=== PATIENT | male | born 1950 | race Hispanic/Latino ===

== ENCOUNTER → 2017-05-27 | Outpatient (CLI) | payer MEDICARE ==
--- NOTE | 2017-05-27 08:45 | Diagnostic Imaging Report ---
PROCEDURE:ABDOMINAL ULTRASOUND COMPARISON:None. INDICATIONS:Abdominal Pain FINDINGS: Liver: 15.2 cm in length in the right midclavicular line. Normal hepatic parenchymal echogenicity. No focal mass. Main portal vein: 0.6 cm in caliber. Hepatopedal flow. Gallbladder: No shadowing calculus, wall thickening, or pericholecystic fluid. Echogenic foci along the gallbladder wall with associated ringdown artifact. Common Bile Duct: 0.2 cm in caliber. No echogenic filling defect. Sonographic Mchugh's sign: Reported as negative. Right kidney: 10.8 cm in length. No solid or cystic mass, echogenic calculi, or hydronephrosis. Normal parenchymal echogenicity. Left kidney: 10.7 cm in length. No solid or cystic mass, echogenic calculi, or hydronephrosis. Normal parenchymal echogenicity. Spleen: 9.7 cm in length. Uniform parenchymal echotexture. Pancreas: The visualized portions of the pancreas are normal. Inferior vena cava: Patent. Aorta: Non-aneurysmal. Ascites: None. CONCLUSION: Gallbladder wall adenomyomatosis. No cholelithiasis or sonographic evidence of acute cholecystitis. Otherwise unremarkable abdominal ultrasound. Dictated by: Tremayne Becker M.D. on 05/27/2017 at 8:53 Electronically approved by: Tremayne Becker M.D. on 05/27/2017 at 8:53
--- NOTE | 2017-05-27 09:31 | Diagnostic Imaging Report ---
PROCEDURE: X-RAY UPPER GI SERIES WITH AIR CONTRAST FLUOROSCOPY TIME: 1.4 MINUTES RADIATION DOSE: 62.95 mGy COMPARISON: None. INDICATIONS: Not provided. FINDINGS: ESOPHAGUS: Motility: Sporadic tertiary, nonperistaltic contractions. Mucosa: Unremarkable. Distensibility: Normal. GASTROESOPHAGEAL JUNCTION: No evidence of hiatal hernia. GASTROESOPHAGEAL REFLUX: Moderate reflux into the middle third of the esophagus. STOMACH: Normally distensible and demonstrates normal contours and mucosal pattern. DUODENUM: Bulb and sweep are normal. Duodenal-jejunal junction is in the normal expected position. IMPRESSION: Moderate gastroesophageal reflux. Dictated by: Tremayne Becker M.D. on 05/27/2017 at 9:39 Electronically approved by: Tremayne Becker M.D. on 05/27/2017 at 9:39
== END ==
LOC: US 07:46
PROVIDERS: ATTEND Family Medicine
DX: R10.9 Unspecified abdominal pain (principal); K21.9 Gastro-esophageal reflux disease without esophagitis
CPT/HCPCS: 74246; 76700

== ENCOUNTER → 2017-06-04 | Outpatient (CLI) | payer MEDICARE ==
[~2017-06-04] MED LIST: SINCALIDE 3 MCG/VIAL INJ ONE
--- NOTE | 2017-06-04 16:43 | Diagnostic Imaging Report ---
Hepatobiliary Scan with Gallbladder Ejection Fraction Clinical information: 67 M with chronic abdominal pain Report: Following intravenous administration of 6 millicuries of Tc-99m mebrofenin, dynamic images of the abdomen in the anterior projection were obtained through 45 minutes. Sincalide (CCK analog) 1.8 micrograms was administered intravenously over 30 minutes with additional imaging for determination of gallbladder ejection fraction. Perfusion to the liver is normal. Extraction of tracer from the blood pool by the liver parenchyma is normal. Tracer is seen promptly within the biliary tract. The gallbladder begins to fill by 22 minutes post-injection of tracer and fills adequately. Tracer is seen in the small bowel by 9 minutes. The gallbladder ejection fraction with administration of sincalide is 93% (normal greater than 40%). Impression: 1. Filling of the gallbladder excludes the diagnosis of acute cystic duct obstruction/acute cholecystitis. 2. Normal gallbladder ejection fraction of 93% does not support the clinical diagnosis of chronic cholecystitis/gallbladder dyskinesia. Signed by: Dr. Erika Manzanares M.D. on 06/04/2017 4:39 PM
== END ==
LOC: NM 11:58
PROVIDERS: ATTEND Family Medicine
DX: R10.9 Unspecified abdominal pain (principal)
CPT/HCPCS: 78227; A9537; J2805

== ENCOUNTER → 2017-09-30 | Outpatient (CLI) | payer MEDICARE ==
--- NOTE | 2017-09-30 13:41 | Diagnostic Imaging Report ---
PROCEDURE:KNEE THREE VIEWS BILATERAL COMPARISON:None. INDICATIONS:BILATERAL KNEE PAIN FINDINGS: Normal mineralization. No acute displaced fracture or dislocation. Mild tricompartmental degenerative joint disease, right greater than left, with presence of small marginal osteophytes. No lytic lesions. 5-6 mm focal sclerotic lesions in the distal left femur have a nonaggressive appearance and likely represent bone islands. No right suprapatellar effusion. Trace left suprapatellar effusion. CONCLUSION: No acute abnormalities. Mild tricompartmental degenerative joint disease, right, is greater than left Manuel Carbone M.D. Dictated by: Manuel Carbone M.D. on 09/30/2017 at 13:43 Electronically approved by: Manuel Carbone M.D. on 09/30/2017 at 13:43
== END ==
LOC: RAD 11:27
PROVIDERS: ATTEND Family Medicine
DX: M25.562 Pain in left knee (principal); M25.561 Pain in right knee

== ENCOUNTER → 2017-12-19 | Outpatient (CLI) | payer MEDICARE ==
--- NOTE | 2017-12-19 18:13 | Diagnostic Imaging Report ---
PROCEDURE: CT ABDOMEN AND PELVIS WITHOUT CONTRAST TECHNIQUE: The abdomen and pelvis were scanned utilizing a multidetector helical scanner from the diaphragm to the lesser trochanter after the oral administration of water. No IV contrast was administered because of stone protocol. Coronal and sagittal multiplanar reformations were obtained. DLP: 692.6 mGy-cm COMPARISON: None. INDICATIONS: RENAL COLIC FINDINGS: ABSENCE OF INTRAVENOUS CONTRAST DECREASES SENSITIVITY FOR DETECTION OF FOCAL LESIONS AND VASCULAR PATHOLOGY. LOWER THORAX: 0.6 cm perifissural nodule along the right minor fissure. Right middle lobe calcified granuloma. HEPATOBILIARY: Hepatic steatosis. No focal hepatic lesions. No biliary ductal dilatation. Focal 0.6 cm gallbladder wall calcification versus calcified granuloma adjacent to the gallbladder. SPLEEN: No splenomegaly. PANCREAS: No focal masses or ductal dilatation. ADRENALS: No adrenal nodules. KIDNEYS/URETERS: No hydronephrosis, stones, or solid mass lesions. Mild right periureteral and peripelvic stranding without ureteral stone. Slight right perinephric stranding. PELVIC ORGANS/BLADDER: Unremarkable. PERITONEUM / RETROPERITONEUM: No free air or fluid. LYMPH NODES: No lymphadenopathy. VESSELS: Moderate atherosclerotic calcifications. Common femoral artery ectasia measuring 1.9 cm on the right and 1.7 cm on the left. GI TRACT: No distention or wall thickening. Descending and sigmoid colonic diverticulosis without evidence of diverticulitis. BONES AND SOFT TISSUES: L2 inferior endplate Schmorl's node. Slight retrolisthesis of L2 on L3. Fat containing inguinal hernias, right greater than left. Degenerative changes of the spine. IMPRESSION: 1. Right perinephric and periureteral stranding may reflect pyelonephritis or passage of a stone which is no longer present. 2. Focal 0.6 cm gallbladder wall calcification versus calcified granuloma adjacent to the gallbladder. 3. Descending and sigmoid colonic diverticulosis without evidence of diverticulitis. Dictated by: Ronald Alvarez M.D. on 12/19/2017 at 18:18 Electronically approved by: Ronald Alvarez M.D. on 12/19/2017 at 18:18
== END ==
LOC: CT 16:42
PROVIDERS: ATTEND Family Medicine
DX: N23 Unspecified renal colic (principal)
CPT/HCPCS: 74176

== ENCOUNTER → 2018-02-20 | Outpatient (CLI) | payer MEDICARE ==
--- NOTE | 2018-02-23 07:44 | Diagnostic Imaging Report ---
Exam: Lumbar spine MRI without IV contrast History: Pain, radiculopathy symptoms. Pain in lower back travels down right leg. Previous back surgery \[id number]. Comparison studies: None Technique: Sagittal and axial T2 , sagittal T1 and IR, axial spin density oblique and coronal T2. Intravenous contrast: None Findings: Number of lumbar vertebral bodies: 5. Alignment: Mild focal kyphotic curvature at L2 at the location of a chronic L2 fracture deformity. Soft tissues: No T2 hyperintense inflammatory changes. Paraspinal muscles: No signal abnormalities. Well-preserved. No atrophic changes Lower thoracic cord: Normal in signal and morphology. The tip of the conus is at the superior L1 level. Cauda equina: No masses. No arachnoiditis. Vertebrae: No acute compression fracture. No evidence of infection or neoplasm. Chronic L2 fracture with involvement of the superior and inferior endplates on the left and anterior wedge compression deformity which results in approximately 60% height loss. Chronic superior endplate depression deformities with mild vertebral body height loss at T12, L1, L3 and at L4. Degenerative changes: Loss of T2/STIR disc signal from T11 to S1. Multilevel anterior marginal osteophytosis. T11-T12 and T12-L1: Mildly degenerated disc. Patent canal and foramina. L1-L2: Moderately degenerated disc. Disc which is partially calcified. There is partial fusion of the vertebral bodies anteriorly in the left. Patent canal and foramina. L2-L3: Mildly degenerated disc. Moderate degenerative endplate changes with mixed sclerotic and fatty replaced changes with mild edema along the inferior L3 endplate on the left. Minimal retrolisthesis of L2 on L3 with associated uncovered disc/disc osteophyte complex asymmetric to the left and mild facet arthrosis with mild canal stenosis and mild bilateral foraminal stenosis. L3-L4: Mildly degenerated disc. Mild fatty replaced marrow endplate changes; no marrow edema. Asymmetric right disc bulge, thickened ligamentum flavum and mild facet arthrosis with mild canal stenosis and mild bilateral foraminal stenosis. L4-L5: Mildly degenerated disc. Mild degenerative endplate changes with moderate reactive edema along the left inferior L4 endplate. Asymmetric left disc bulge with 10 mm TV x 3 mm AP left central disc protrusion, thickened ligamenta flava and mild facet arthrosis with minimal canal stenosis, mild narrowing of the left subarticular recess and mild left foraminal stenosis. Patent right foramen. L5-S1: Mildly degenerated disc. Fatty replaced marrow endplate changes, greatest on the right. Asymmetric right disc osteophyte complex and facet arthrosis with moderate bilateral foraminal stenosis. No significant canal stenosis. Prior laminotomy changes. Partially imaged sacroiliac joints: Degenerative changes bilaterally osteophyte formation along the joint centrally. Additional findings: A 6 mm T2 hyperintense lesion in the interpolar right kidney is most likely a cyst. IMPRESSION: 1. Chronic L2 vertebral body fracture with wedge compression deformity (\R\60% height loss) as well as chronic superior endplate depression deformities at T12, L1, L3 and at L4 with minimal height loss. 2. Degenerative changes with multilevel disc degeneration, small disc protrusion L4-L5, mild degenerative canal stenosis from L2 to L4 and multilevel foraminal stenosis from L2 to L5 which is worse/moderate bilaterally at L5-S1. 3. Prior laminotomy changes at L5-S1. Signed by: Dr. Tremayne Arredondo M.D. on 02/23/2018 7:41 AM
== END ==
LOC: MRI 12:30
PROVIDERS: ATTEND Family Medicine
DX: M54.16 Radiculopathy, lumbar region (principal); M54.5 Low back pain
CPT/HCPCS: 72148

== ENCOUNTER 2018-03-16 09:37 | Outpatient (RCR) | payer MEDICARE | END 2018-03-18 | LOC: PT 09:37 | PROVIDERS: ATTEND Specialist | DX: M54.41 Lumbago with sciatica, right side (principal); S33.5XXA Sprain of ligaments of lumbar spine, initial encounter; M54.5 Low back pain; M62.81 Muscle weakness (generalized) | CPT/HCPCS: 97162; G8978; G8979 ==

== ENCOUNTER 2018-04-08 09:00 | Outpatient (RCR) | payer MEDICARE | END 2018-04-17 | LOC: PT 09:00 | PROVIDERS: ATTEND Specialist | DX: S33.5XXA Sprain of ligaments of lumbar spine, initial encounter (principal); M54.5 Low back pain; M54.41 Lumbago with sciatica, right side; M62.81 Muscle weakness (generalized) ==

== ENCOUNTER → 2019-01-11 | Outpatient (CLI) | payer MEDICARE ==
--- NOTE | 2019-01-11 13:08 | Diagnostic Imaging Report ---
Exam: Bilateral hip series Clinical History: Bilateral hip pain Findings: There is no evidence of acute fracture or malalignment. The articular joints are well-preserved. The soft tissue is unremarkable. Impression: No radiographic evidence of acute osseous injury. Signed by: Dr. Ayaz Richardson MD on 01/11/2019 1:05 PM
== END ==
LOC: RAD 11:44
PROVIDERS: ATTEND Anesthesiology Pain Medicine
DX: M25.552 Pain in left hip (principal); M25.551 Pain in right hip
CPT/HCPCS: 73521

== ENCOUNTER → 2019-03-11 | Outpatient (CLI) | payer MEDICARE ==
--- NOTE | 2019-03-11 10:23 | Diagnostic Imaging Report ---
TECHNIQUE: Magnetic resonance imaging of the BILATERAL HIPS were performed with separate small [id number] imaging WITHOUT injected contrast. HISTORY: Pain, bilateral hips COMPARISON: Bilateral hip radiographs January 11, 2019. Lumbar spine MRI from February 20, 2018. FINDINGS: Bone: Incompletely characterized fat and fluid sensitive hypointense foci, 1.5 cm within the left side of L4 and incompletely visualized 1.7 cm within the left side of L3, which were not visible on the comparison lumbar spine MRI. No osteonecrosis or acute fracture. Femoroacetabular Joints: Acetabular labrum: Attenuation and contour irregularity of the superior and anterosuperior labrum, right greater than left. Articular Cartilage: Low to intermediate grade erosion of the weightbearing cartilage. Muscle and tendons: The visualized tendons appear intact. Soft tissues: Otherwise, unremarkable. IMPRESSION: 1. Mild bilateral degenerative changes of the hips, including degenerative tearing of the brenda. 2. Interval development of an incompletely characterized hypointense foci within the L3 and L4 vertebral bodies, recommend a follow-up MRI of the lumbar spine with and without contrast for further characterization. Signed by: Dr. Jose Boyce D.O., M.M.M. on 03/11/2019 10:20 AM
== END ==
LOC: MRI 07:33
PROVIDERS: ATTEND Anesthesiology Pain Medicine
DX: M25.552 Pain in left hip (principal); M25.551 Pain in right hip

== ENCOUNTER → 2019-04-07 | Outpatient (CLI) | payer MEDICARE ==
[~2019-04-07] MED LIST changes: +GADOBENATE DIMEGLUMINE 1 ML IV ONE; -SINCALIDE 3 MCG/VIAL INJ ONE
[2019-04-07 09:36] LABS: BLOOD UREA NITROGEN 21 mg/dL (7-26); BUN/CREATININE RATIO 23 (6-25); CREATININE, SERUM 0.93 mg/dL (0.72-1.25); EST GLOMERULAR FILTRATION RATE > 60 ML/MIN (60-)
--- NOTE | 2019-04-07 13:51 | Diagnostic Imaging Report ---
History: Low back pain, radiating to bilateral hips. Comparison studies: MRI of the lumbar spine 02/20/2018 Technique: Sagittal, coronal and axial T2 , sagittal T1 and IR, axial spin density oblique. Postcontrast axial and sagittal T1. Intravenous contrast: None Findings: Number of lumbar vertebral bodies:5 Alignment: Straightening of the normal lordosis. Minimal grade 1 retrolisthesis of L2 over L3, stable.No scoliosis. Soft tissues: No T2 hyperintense inflammatory changes. Paraspinal muscles: No signal abnormalities. No atrophy. Lower thoracic cord:Normal in signal and morphology. The tip of the conus is at T12-L1. Cauda equina: No masses. No arachnoiditis. Loss of height Vertebrae: Focal low signal intensity at T12-L4 vertebral bodies, secondary to vertebroplasty changes. No acute compression fractures, infection or neoplasm. Chronic wedge compression deformities from T12 through L4 vertebral bodies, most significant at L2 with 40-60% loss of anterior vertebral body height. No retropulsion. Degenerative changes: L1-L2: Disc degeneration with loss of T2 signal. Patent canal and foramina. L2-L3: Disc degeneration with loss of T2 signal and decreased intervertebral space. Diffuse disc bulge, mild facet hypertrophy and ligamentum flavum thickening results in mild canal stenosis and mild bilateral foraminal narrowing more prominent on the left side. L3-L4: Disc degeneration with loss of T2 signal. Asymmetric right disc bulge, mild facet hypertrophy and ligamentum flavum thickening results in mild canal stenosis, narrowing of the right subarticular recesses, and mild bilateral foraminal narrowing more prominent right. Trace of fluid at the right facet joint. L4-L5: Disc degeneration with loss of T2 signal. Schmorl node at L4 inferior endplate with surrounding edema. Diffuse disc bulge with superimposed small left central disc protrusion (10 mm TV x 3 mm AP ) and mild facet hypertrophy results in mild canal stenosis, narrowing the left subarticular recess and mild left foraminal narrowing. Trace of fluid at the bilateral facet joints. L5-S1: Disc degeneration with loss of T2 signal. Asymmetric right disc bulge, mild facet hypertrophy results in no significant canal stenosis and moderate bilateral foraminal narrowing more prominent on the right. Irregularity of the right lamina, could be related to previous intervention. Additional findings: Degenerative changes of the right SI joint, nearby anteriorly projecting osteophytes. 6 mm cyst at the right kidney interpolar region. IMPRESSION: Moderate bilateral degenerative foraminal narrowing at L5-S1, stable. Degenerative narrowing of the subarticular recesses at L3-4 on the right and L4-5 on the left, stable. Other degenerative changes without significant (moderate or severe) canal stenosis or foraminal narrowing. Mild synovitis changes at the L3-L4 right and L4-L5 bilaterally L5-S1 laminectomy changes, stable. Chronic wedge compression deformities from T12 through L4, more significant at L2, stable. Vertebroplasty changes from T12 through L4, new from previous exam. Signed by: DR Khalif Torres M.D. on 04/07/2019 9:08 PM
== END ==
LOC: MRI 08:48
PROVIDERS: ATTEND Anesthesiology Pain Medicine
DX: M54.5 Low back pain (principal); M54.16 Radiculopathy, lumbar region; M47.897 Other spondylosis, lumbosacral region
CPT/HCPCS: 36415; 72158; 82565; 84520; A9577

== ENCOUNTER → 2019-08-17 | Outpatient (CLI) | payer MEDICARE ==
--- NOTE | 2019-08-17 12:23 | Diagnostic Imaging Report ---
EXAM: CT Abdomen and Pelvis WITHOUT intravenous contrast INDICATION: Flank pain COMPARISON: CT abdomen pelvis of 12/19/2017 TECHNIQUE: Abdomen and pelvis were scanned utilizing a multidetector helical scanner from the lung base to the pubic symphysis without administration of IV contrast. Coronal and sagittal reformations were obtained. IV CONTRAST: None ORAL CONTRAST: None COMPLICATIONS: None RADIATION DOSE: Total DLP: 649 mGy*cm Dose modulation, iterative reconstruction, and/or weight based adjustment of the mA/kV was utilized to reduce the radiation dose to as low as reasonably achievable. FINDINGS: LOWER THORAX: Normal. HEPATOBILIARY: Diffuse hepatic steatosis. No focal liver lesion. Unremarkable gallbladder. SPLEEN: No splenomegaly. PANCREAS: No focal masses or ductal dilatation. ADRENALS: No adrenal nodules. KIDNEYS/URETERS: No hydronephrosis, stones, or solid mass lesions. PELVIC ORGANS/BLADDER: Unremarkable. PERITONEUM / RETROPERITONEUM: No free air or fluid. LYMPH NODES: No lymphadenopathy. VESSELS: Scattered atherosclerotic calcifications of the nonaneurysmal abdominal aorta and major branches. GI TRACT: Diverticulosis without CT evidence of diverticulitis. No abnormal bowel thickening. No bowel obstruction. Normal appendix. BONES AND SOFT TISSUES: No acute osseous injury. Vertebral augmentation at T12-L4. IMPRESSION: No acute findings in the abdomen or pelvis. Specifically, no renal calculi or hydronephrosis. Diffuse hepatic steatosis. Diverticulosis without CT evidence of diverticulitis. Signed by: Jovanni Lee MD on 08/17/2019 12:20 PM
== END ==
LOC: CT 10:29
PROVIDERS: ATTEND Family Medicine
DX: N23 Unspecified renal colic (principal); K57.90 Diverticulosis of intestine, part unspecified, without perforation or abscess without bleeding; K76.0 Fatty (change of) liver, not elsewhere classified
CPT/HCPCS: 74176